=== PATIENT | male | born 1985 | race Caucasian/White ===

== ENCOUNTER → 2016-08-03 | Outpatient (CLI) | payer MEDICARE | LOC: EMI 07-05 17:45 | DX: M51.36 Other intervertebral disc degeneration, lumbar region (principal); M54.16 Radiculopathy, lumbar region; R60.0 Localized edema; Z98.1 Arthrodesis status | CPT/HCPCS: 72148 ==

== ENCOUNTER 2021-10-08 19:07 | Emergency (ER) | payer OTHER ==
[~2021-10-08 19:07] MED LIST: LODINE CAP 300300 MG PO
[2021-10-08 21:02] LABS: HEMOGLOBIN 14.8 gm/dl (14.0-17.5); RED BLOOD COUNT 5.18 M/UL (4.20-5.50)
[2021-10-08 21:26] LABS: BUN/CREATININE RATIO 13 (0-10)
[2021-10-08] MEDS ORDERED: PERCOCET 5/325 T1 EA PO ×2 (23:03→23:18)
[2021-10-08] MEDS ORDERED: AUGMENTIN XR 11 EACH PO ×2 (23:03→23:18)
== END 2021-10-08 23:24 | disposition home or self-care (01) ==
LOC: ER1 19:07
PROVIDERS: Family Medicine
DX: K04.7 Periapical abscess without sinus (principal); I10 Essential (primary) hypertension; F17.210 Nicotine dependence, cigarettes, uncomplicated
CPT/HCPCS: 70491; 80053; 85025; 85652; 86140; 99284; J0295; J1885; Q9967